=== PATIENT | male | born 1980 | race Caucasian/White ===

== ENCOUNTER 2021-10-08 16:44 | Emergency (ER) | payer OTHER, SELFPAY ==
[2021-10-08 16:46] VITALS: BP 164/145; PULSE 169; RESP 18; TEMP 36.1; O2SAT 99; BMI 34.9
--- NOTE | 2021-10-08 17:01 | EKG12_ITS ---
Test Reason : PALP Blood Pressure : / mmHG Vent. Rate : 169 BPM Atrial Rate : 080 BPM P-R Int : 000 ms QRS Dur : 092 ms QT Int : 280 ms P-R-T Axes : 000 -32 012 degrees QTc Int : 469 ms Supraventricular tachycardia Left axis deviation Nonspecific ST abnormality Abnormal ECG Confirmed by ADY MCQUEEN, MORENO ([id number]), health editor MOHINDER CLEMONS ([id number]) on 10/10/2021 12:12:49 PM Referred By: WALDEMAR Confirmed By:MORENO GARSIA MD
[2021-10-08 17:16] VITALS: BP 164/122; PULSE 116; RESP 8
--- NOTE | 2021-10-08 17:24 | ED.RN ---
per dr lentz, hold adenosine. pt in sinus tach at 115.
[2021-10-08 17:53] LABS: Hematocrit 50.3 % (40-54); Hemoglobin 16.7 g/dL (13.0-16.5); Mean Corp Hgb Conc 33.2 g/dL (32-36); Mean Corpuscular Hgb 27.7 pg (27.0-32.0); Mean Corpuscular Volume 83.4 fL (80-94); Mean Platelet Vol. 9.2 fl (6.2-12.0); Platelet Count 263 K/mm3 (150-450); RBC Distribution Width CV 14.2 % (11.6-14.6); RBC Distribution Width SD 43.1 fl (35.1-43.9); Red Blood Count 6.03 M/mm3 (4.6-6.2); White Blood Count 12.8 K/mm3 (4.4-11.0)
[2021-10-08 18:02] LABS: Anion Gap 5 (5-15); BUN 16 mg/dL (7-18); BUN/Creat Ratio 19.8 RATIO (10-20); Calcium,Total 9.4 mg/dL (8.5-10.1); Chloride 108 mmol/L (98-107); Creatinine, Serum 0.81 mg/dL (0.70-1.30); EST Glomerular Filtration Rate 111 mL/min (>60); Est Glom Filt Rate - Afr Amer 134 mL/min (>60); Estimated Creatinine Clearance 107.21 ml/min; Glucose 116 mg/dL (74-106); Potassium 3.9 mmol/L (3.5-5.1); Sodium Level 141 mmol/L (136-145)
[2021-10-08 18:04] VITALS: BP 184/126; PULSE 115
--- NOTE | 2021-10-08 18:46 | EKG12_ITS ---
Test Reason : REPEAT Blood Pressure : / mmHG Vent. Rate : 107 BPM Atrial Rate : 107 BPM P-R Int : 172 ms QRS Dur : 092 ms QT Int : 350 ms P-R-T Axes : 059 -20 022 degrees QTc Int : 467 ms Sinus tachycardia Otherwise normal ECG Confirmed by ADY MCQUEEN, MORENO ([id number]), health editor MOHINDER CLEMONS ([id number]) on 10/10/2021 12:13:32 PM Referred By: Confirmed By:MORENO GARSIA MD
--- NOTE | 2021-10-08 19:24 | EX.ED.DYSGE1 ---
HPI History of Present Illness Chief Complaint: Palpitations Informant: patient and spouse/S.O. Onset/Context/Timing Onset: Hours (Onset 1100) Context: Sudden Onset Timing: Continuous Quality: Palpitations Location: Chest Current Severity: Moderate Maximum Severity: Moderate Worsened by: Nothing Relieved by: Nothing Associated Symptoms Associated Symptoms: No associated symptoms Narrative Narrative: Patient is a 41-year-old male with no sniffing past medical history who was sent from his primary care physician because of rapid heart rate, PSVT. Tried vagal maneuvers without success. Patient has no past medical history. He is a non-smoker. He will have a drink of 1 beer every 2 weeks. This was verified by . He denies history of atrial fibrillation. He denies history of rapid heartbeat. He denies history of VTE. He denies leg pain, swelling discoloration. He denies orthostatic symptoms. He denies chest pain. He denies dyspnea or dyspnea exertion. He denies orthopnea or PND. He denies leg or feet swelling. Prior similar symptoms: No Recent Illness/Hospitalization: No PFSH PFSH Home Medications metoprolol succinate 25 mg PO DAILY #30 tab 10/08/21 [Rx Last Taken Unknown] Allergy/AdvReac Type Severity Reaction Status Date / Time No Known Allergies Allergy Verified 10/08/21 16:45 Surgical History no surgical history no surgical history Social History (Updated 10/08/21 @ 19:[address] Leonardo Singh MD) household members: spouse and children Smoking Status: Never smoker alcohol intake: current alcohol intake frequency: a few times a month substance use type: does not use ROS ROS ED Constitutional Constitutional ED: Denies chills, fever(s), subjective or sweats Eyes Eyes: Denies blurry vision, change in vision or diplopia ENT ENT ED: Denies ear pain, rhinorrhea or sore throat Cardiovascular Cardiovascular: Reports palpitations and racing heartbeat; Denies chest pain, orthopnea or paroxysmal nocturnal dyspnea Respiratory/Chest Respiratory/Chest: Denies cough, dyspnea, dyspnea on exertion, orthopnea, paroxysmal nocturnal dyspnea or sputum Gastrointestinal Gastrointestinal: Denies abdominal pain, nausea or vomiting Genitourinary Genitourinary ED: Denies dysuria, hematuria or urinary frequency Musculoskeletal Musculoskeletal: Denies arthralgias, myalgias or neck pain Integumentary Denies rash Neurologic Neurologic: Denies headache(s) or weakness Endocrine Endocrinology: Denies cold intolerance, heat intolerance, polydipsia, polyphagia or polyuria EXAM Physical Exam Const Vital Signs: 10/08/21 16:46 10/08/21 17:16 10/08/21 18:04 Temperature 97.0 F L Temperature Source Temporal Pulse Rate 169 H 116 H 115 H Respiratory Rate 18 8 L Blood Pressure 164/145 H 164/122 H 184/126 H Blood Pressure Mean 151 136 145 Pulse Ox 99 Oxygen Delivery Method Room Air Positive well nourished, well developed and obese General Appearance ED: well developed and NAD; Negative for cyanotic, diaphoretic or pallor Nutritional Appearance: obese HEENT Reports TM's clear and moist mucous membranes Negative for trauma or tenderness Tympanic Membrane ED: Yes TM's clear Eyes PERRL and EOMs intact bilaterally General Eye ED: Negative for pale conjunctiva or scleral icterus Neck no lymphadenopathy, supple and no JVD Chest Wall inspection of chest normal and palpation of chest normal Resp normal respiratory effort and clear to auscultation bilaterally Cardio regular rhythm, S1 normal heart sound, S2 normal heart sound and no murmurs Palpation: Negative for palpable S4 Rate: tachycardic GI normal to inspection, nondistended, normoactive bowel sounds and non-tender Back/Spine no CVA tenderness Cervical Spine: Negative for cervical spine tenderness Neuro oriented x3 and CN's II-XII intact bilaterally Sensorium / Orientation: alert Psych mental status grossly normal Skin no rashes or lesions noted, no wounds and skin turgor normal General Skin Exam: Negative for jaundice or pallor MDM MDM MDM Narrative Medical decision making narrative: EKG reveals a supraventricular tachycardia with a heart rate of 169. QRS complex is narrow. No P waves noted. Cures duration 92 ms. QT duration 280 ms. [place] to the left. There is an ossific changes most likely due to rate. Adenosine was ordered. Nurse informing prior to the administration of adenosine his heart rate slowed. Repeat EKG reveals a sinus tachycardia with a rate of 107 and is otherwise normal. Case was discussed with Dr. Rigo Masterson. Plan metoprolol 25 mg and follow-up as outpatient Lab Data Attestation: I reviewed the patient's lab results. Labs: Laboratory Results - last 24 hr 10/08/21 10/08/21 17:15 17:15 WBC 12.8 H RBC 6.03 Hgb 16.7 H Hct 50.3 MCV 83.4 MCH 27.7 MCHC 33.2 RDW Std Deviation 43.1 RDW Coeff of Omar 14.2 Plt Count 263 MPV 9.2 Sodium 141 Potassium 3.9 Chloride 108 H Carbon Dioxide 28.0 Anion Gap 5 BUN 16 Creatinine 0.81 Estim Creat Clear Calc 107.21 Est GFR (MDRD) Af Amer 134 Est GFR (MDRD) Non-Af 111 BUN/Creatinine Ratio 19.8 Glucose 116 H Calcium 9.4 EKG Initial EKG: Attestation: I personally reviewed and interpreted this EKG as follows: Interpretation: Sinus Tachycardia (Ventricular rate 107. NH interval 172 ms. Cures duration 92 ms. QT duration 3 and 50 ms. [place] is normal. Other than the sinus tachycardia the EKG is normal.) and SVT (Ventricular rate 169. [place] the left. QS duration 92 ms. QT duration 280 ms. Artifact noted. Repeat EKG reveals a sinus tachycardia rate of 107 otherwise normal.) Discharge Plan Triage Chief Complaint: Palpitations ED Provider: Leonardo Singh Dx/Rx/DC Orders Clinical Impression: Paroxysmal supraventricular tachycardia Instructions: Supraventricular Tachycardia Prescriptions: New metoprolol succinate 25 mg tablet extended release 24 hr 25 mg PO DAILY Qty: 30 RF: 0 Primary Care Provider: Vladimir Mccray Referrals: Vladimir Mccray DO [Primary Care Provider] - Rigo Masterson MD [STAFF PHYSICIAN] - 5-7 Days Activity Restrictions/Additional Instructions: Call Dr. Bowser's office to be seen within the next week Disposition Disposition: Home, Self Care
[2021-10-08] MEDS: Metoprolol(XL)Succ 25 MG Tablet PO (19:56)
[2021-10-08 20:07] VITALS: BP 179/124; PULSE 106
== END 2021-10-08 20:10 | disposition home or self-care (01) ==
PROVIDERS: Emergency Provider Emergency Medicine; PCP Family Medicine
DX: I47.1 Supraventricular tachycardia (principal); E66.9 Obesity, unspecified; Z68.34 Body mass index [BMI] 34.0-34.9, adult
CPT/HCPCS: 80048; 85027; 93005; 99285; A4216

== ENCOUNTER → 2021-10-12 09:25 | Outpatient (CLI) | payer OTHER, SELFPAY ==
[2021-10-12 10:41] LABS: Thyroid Stim Hormone (TSH) 1.14 uIU/mL (0.358-3.74)
== END ==
PROVIDERS: PCP Family Medicine; Referring Provider Internal Medicine Cardiovascular Disease; Visit Provider Internal Medicine Cardiovascular Disease
DX: I47.1 Supraventricular tachycardia (principal); R03.0 Elevated blood-pressure reading, without diagnosis of hypertension
CPT/HCPCS: 36415; 84443

== ENCOUNTER 2022-01-11 09:02 | Outpatient (CLI) | payer SELFPAY, OTHER ==
--- NOTE | 2022-01-11 09:05 | ECHOCS_ITS ---
Reason For Study: Arrhythmia Procedure This was a 2D Doppler, Color Flow transthoracic echocardiogram. Contrast injection was performed. Exam performed in department. Left Ventricle Normal LV size. The estimated ejection fraction is 40 %. Stage 1 diastolic dysfunction. There is mild to moderate global hypokinesis of the left ventricle. Right Ventricle Normal RV size. Normal systolic function. Atria Normal left atrium. Normal right atrium. Mitral Valve Mitral valve not well visualized. Tricuspid Valve Normal tricuspid valve. Mild tricuspid valve insufficiency. Pulmonary artery systolic pressure is 18 mmHg. Aortic Valve The aortic valve is not well visualized. Pulmonic Valve The pulmonic valve is not well visualized. Great Vessels Normal aortic root. The pulmonary artery is normal size. Normal inferior vena cava. Pericardium/Pleural No pericardial effusion. Medication Diluted definity 3.5ml given slow IV push to enhance endocardial definition. MMode/2D Measurements & Calculations LVIDd: 5.2 cm IVSd: 1.6 cm Ao root diam: 2.8 cm LVIDs: 3.9 cm LVPWd: 1.4 cm RVDd: 2.7 cm FS: 24.5 % LAV(MOD-bp): 48.8 ml LVAd ap4: 33.4 cm2 SV(MOD-sp4): 57.1 ml LAV(MOD-bp) Indexed: 23.8 ml/m2 LVLd ap4: 8.2 cm LAV(MOD-sp2): 52.0 ml EDV(MOD-sp4): 112.4 ml LAV(MOD-sp4): 41.7 ml EDV(sp4-el): 115.3 ml LVAs ap4: 21.8 cm2 LVLs ap4: 7.1 cm ESV(MOD-sp4): 55.3 ml ESV(sp4-el): 56.5 ml EF(MOD-sp4): 50.8 % EF(sp4-el): 51.0 % SV(sp4-el): 58.8 ml LA A4 area: 16.2 cm2 LA dimension(2D): 3.7 cm RA A4 area: 10.7 cm2 Doppler Measurements & Calculations MV E max berry: 52.1 cm/sec Lat Peak E' Berry: 5.6 cm/sec Med Peak E' Berry: 4.5 cm/sec MV A max berry: 80.8 cm/sec E/E' lat: 9.4 E/E' med: 11.5 MV E/A: 0.64 Ao V2 max: 115.2 cm/sec LV V1 max: 108.7 cm/sec PA V2 max: 111.0 cm/sec Ao max P.3 mmHg LV V1 max P.7 mmHg Ao V2 mean: 85.2 cm/sec Ao mean P.1 mmHg Ao V2 VTI: 21.0 cm TR max berry: 189.1 cm/sec TR max P.3 mmHg ECHO/Echo Complete W/ Contrast Interpretation Summary Normal LV size. The estimated ejection fraction is 40 %. There is mild to moderate global hypokinesis of the left ventricle. Stage 1 diastolic dysfunction. Contrast injection was performed. Ordering Physician: Rigo Masterson Referring Physician: Vladimir Mccray Performed By: Radha Sandy, RDCS, RVT
== END 2022-01-11 23:59 | disposition home or self-care (01) ==
PROVIDERS: PCP Family Medicine; Referring Provider Internal Medicine Cardiovascular Disease; Visit Provider Internal Medicine Cardiovascular Disease
DX: I47.1 Supraventricular tachycardia (principal)
CPT/HCPCS: 93306; Q9957; A4216; C8929

== ENCOUNTER → 2022-05-07 | Outpatient (CLI) | payer SELFPAY, OTHER ==
--- NOTE | 2022-05-07 08:56 | ECHOL_ITS ---
Reason For Study: CARDIOMYOPATHY Procedure This was a limited 2D transthoracic echocardiogram. Exam performed in department. Left Ventricle Normal LV size. Left ventricular systolic function is normal. The estimated ejection fraction is 55 %. No regional wall motion abnormalities noted. Right Ventricle Normal RV size. Normal systolic function. Atria Normal left atrium. Normal right atrium. Mitral Valve Normal mitral valve. Tricuspid Valve Normal tricuspid valve. Aortic Valve Normal aortic valve. Trisinus/trileaflet aortic valve. Pulmonic Valve Normal pulmonic valve. Great Vessels Normal aortic root. The pulmonary artery is normal size. Normal inferior vena cava. Pericardium/Pleural No pericardial effusion. MMode/2D Measurements & Calculations LVIDd: 4.6 cm IVSd: 1.2 cm LVAd ap4: 34.6 cm2 LVIDs: 3.3 cm LVPWd: 1.2 cm LVLd ap4: 8.9 cm FS: 29.5 % EDV(MOD-sp4): 109.1 ml EDV(sp4-el): 114.3 ml LVAs ap4: 20.9 cm2 LVLs ap4: 7.7 cm ESV(MOD-sp4): 50.8 ml ESV(sp4-el): 48.4 ml EF(MOD-sp4): 53.5 % EF(sp4-el): 57.6 % SV(MOD-sp4): 58.3 ml SV(sp4-el): 65.9 ml ECHO/Echo, Limited Study Interpretation Summary Normal LV size. Left ventricular systolic function is normal. The estimated ejection fraction is 55 %. Structurally normal valves. Ordering Physician: Melvin Sandy/Rigo Masterson Referring Physician: HAYLEE SAENZ Performed By: Kena Mesa RDCS
== END | disposition home or self-care (01) ==
LOC: CVS 08:51
PROVIDERS: PCP Family Medicine; Referring Provider Nurse Practitioner Family; Visit Provider Nurse Practitioner Family
DX: I42.9 Cardiomyopathy, unspecified (principal); I47.1 Supraventricular tachycardia; R03.0 Elevated blood-pressure reading, without diagnosis of hypertension
CPT/HCPCS: 93308